=== PATIENT | female | born 1945 | race Caucasian/White ===

== ENCOUNTER → 2020-09-15 | Outpatient (CLI) | payer BC, OTHER ==
[~2020-09-15] MED LIST: ATENOLOL25 MG PO; B COMPLEX1 EACH PO; CLONIDINE HCL0.2 MG PO; COQ-10100 MG PO; DULOXETINE HCL20 MG PO; FLUTICASONE SPRAY; HYDROCODON-ACE1 EAC2 PO; LATANOPROST 0.7.5 ML EYEBOTH; LEVOTHYROXINE125 MC1 PO; LISINOPRIL20 MG PO; LOW DOSE ASPIRI81 MG PO; MEGA BIOTIN10000 MCG PO; NAPROXEN500 MG PO; NORVASC2.5 MG PO; OMEPRAZOLE20 M1 PO; OSTEO BI-FLEX1 EAC1 PO; PRAVASTATIN SOD40 MG PO; VITAMIN D310 MC1 PO; VITAMIN E400 UNI4 PO
[2020-09-15 12:20] LABS: HEMOGLOBIN 12.3 gm/dl (12.3-15.3); RED BLOOD COUNT 4.04 M/UL (4.00-5.10); WHITE BLOOD COUNT 3.4 K/UL (4.5-11.0)
[2020-09-15 12:43] LABS: BUN/CREATININE RATIO 42 (0-10)
== END ==
LOC: OPSV2 10:30
PROVIDERS: Orthopaedic Surgery
DX: Z01.818 Encounter for other preprocedural examination (principal); S52.021A Displaced fracture of olecranon process without intraarticular extension of right ulna, initial encounter for closed fracture
CPT/HCPCS: 36415; 71046; 80048; 85027; 93005

== ENCOUNTER → 2020-09-16 | Day surgery (SDC) | payer MEDICARE, OTHER | END | disposition home or self-care (01) | LOC: OR 07:37 | DX: S52.021A Displaced fracture of olecranon process without intraarticular extension of right ulna, initial encounter for closed fracture (principal); K21.9 Gastro-esophageal reflux disease without esophagitis; I10 Essential (primary) hypertension; E78.5 Hyperlipidemia, unspecified; M81.0 Age-related osteoporosis without current pathological fracture; E03.9 Hypothyroidism, unspecified; W10.9XXA Fall (on) (from) unspecified stairs and steps, initial encounter; Z95.2 Presence of prosthetic heart valve; Z88.4 Allergy status to anesthetic agent; Z88.2 Allergy status to sulfonamides; Z79.82 Long term (current) use of aspirin; Z79.899 Other long term (current) drug therapy; Z79.890 Hormone replacement therapy; Z86.011 Personal history of benign neoplasm of the brain; Z85.048 Personal history of other malignant neoplasm of rectum, rectosigmoid junction, and anus | CPT/HCPCS: 73070; 73080; 76000; 93005; C1713; J0690; J1100; J1885; J2001; J2405; J2704; J2710; J2795; J3010; J7120 ==